=== PATIENT | male | born 1945 | race Caucasian/White ===

== ENCOUNTER 2018-02-10 14:16 | Inpatient (IN) | payer MEDICARE ==
[~2018-02-10] VITALS: Ht 172.7 cm; Wt 95.5 kg
[2018-02-10 14:24] VITALS: BP 149/78; PULSE 79; RESP 20; TEMP 97.5; O2SAT 96
[2018-02-10 14:35] VITALS: BP 170/79; PULSE 71; RESP 18; O2SAT 97
[2018-02-10 14:46] VITALS: BP 146/69; PULSE 67
--- NOTE | 2018-02-10 15:02 | RADRPT ---
EXAM DATE/TIME: 02/10/2018 14:55 [facility] COMPARISON: No previous studies available for comparison. INDICATIONS : Syncope. MEDICAL HISTORY : Hypertension. Diabetes mellitus type II. SURGICAL HISTORY : None. ENCOUNTER: Initial ACUITY: 1 day PAIN SCORE: 0/10 LOCATION: Bilateral chest FINDINGS: Underinflated AP view of the chest demonstrates a normal-sized cardiac silhouette with calcification of the aorta. Lungs are underinflated with atelectasis at the bases. No effusion, consolidation, or p neumothorax is visualized. The bones and soft tissues demonstrate no acute finding. CONCLUSION: Underinflation with atelectasis at the lung bases. Otherwise, no acute cardiopulmonary abnormality is identified. Chris Harris MD on February 10, 2018 at 14:58 Board Certified Radiologist. This report was verified electronically.
[2018-02-10 15:15] LABS: AUTOMATED NEUTROPHIL # 7.6 TH/MM3 (1.8-7.7); BASOPHIL # 0.1 TH/MM3 (0-0.2); BASOPHIL % 0.8 % (0.0-2.0); EOSINOPHIL # 0.7 TH/MM3 (0-0.4); EOSINOPHIL % 6.5 % (0.0-4.0); HEMATOCRIT 38.2 % (39.0-51.0); HEMOGLOBIN 13.1 GM/DL (13.0-17.0); LYMPH % 14.8 % (9.0-44.0); LYMPHOCYTE # 1.6 TH/MM3 (1.0-4.8); MEAN CELL VOLUME 87.5 FL (80.0-100.0); MEAN CORPUSCULAR HEMOGLOBIN 30.1 PG (27.0-34.0); MEAN CORPUSCULAR HGB CONC 34.3 % (32.0-36.0); MEAN PLATELET VOLUME 10.9 FL (7.0-11.0); MONO % 7.5 % (0.0-8.0); MONOCYTE # 0.8 TH/MM3 (0-0.9); NEUT % 70.4 % (16.0-70.0); PLATELET COUNT 212 TH/MM3 (150-450); RED BLOOD COUNT 4.36 MIL/MM3 (4.50-5.90); RED CELL DISTRIBUTION WIDTH 14.9 % (11.6-17.2); WHITE BLOOD COUNT 10.9 TH/MM3 (4.0-11.0)
--- NOTE | 2018-02-10 15:28 | PD ---
HPI Chief Complaint: Neuro Symptoms/ Deficits Time Seen by Provider: 14:31 Travel History International Travel<30 days: Yes Contact w/Intl Traveler<30days: Yes Name of Country Traveled to: [place] Traveled to known affect area: No History of Present Illness HPI 72-year-old male the presents to the ED for evaluation of possible stroke. Per patient the symptoms started on 06 February. Per patient he was increased with family visiting in [place] when he noticed that his right side started to become weak and she started having trouble with speech as well as with confusion. Per patient he did not get seen by anybody during that time. Continue his drip. Mainly because he was seen in an area where there was not a lot of healthcare she did not want to stop his strip. He just came back the past couple of days and the symptoms continued so he was concerned so he came here to get evaluated. He does have a history of high blood pressure, cholesterol, diabetes and takes Plavix. He has a significant history of heart disease. He has never had a CVA himself. No history of this in the past. Per patient he did fall 2 days after the symptoms started but did not hit his head. Has a bruise to his left elbow. Patient currently has no pain. No blurred vision double vision. No headache. Per patient his main symptoms are the weakness on his arms to have no change since symptoms started on the . PFSH Past Medical History Hx Anticoagulant Therapy: Yes (Plavix) High Cholesterol: Yes Coronary Artery Disease: Yes Diabetes: Yes Patient Takes Glucophage: Yes Hypertension: Yes Past Surgical History Cardiac Surgery: Yes (CARDIAC STENT) Social History Alcohol Use: No Tobacco Use: No Substance Use: No Allergies-Medications (Allergen,Severity, Reaction): Coded Allergies: No Known Allergies (Unverified , 02/10/18) Review of Systems Except as stated in HPI: all other systems reviewed are Neg Physical Exam Narrative GENERAL: SKIN: Warm and dry. Patient has a bruise to the left elbow. HEAD: Atraumatic. Normocephalic. EYES: Pupils equal and round 4 mm reactive to light and accommodation.. No scleral icterus. No injection or drainage. ENT: No nasal bleeding or discharge. Mucous membranes pink and moist. Tongue is midline. No obvious uvula deviation. Patient does appear to have some facial droop on the right side. NECK: Trachea midline. No JVD. CARDIOVASCULAR: Regular rate and rhythm. No murmurs, S3, S4. RESPIRATORY: No accessory muscle use. Clear to auscultation. Breath sounds equal bilaterally. GASTROINTESTINAL: Abdomen soft, non-tender, nondistended. Hepatic and splenic margins not palpable. MUSCULOSKELETAL: Extremities without clubbing, cyanosis, or edema. No obvious deformities. Full range of motion of the upper and lower extremities bilaterally. 4 out of 5 strength in the right upper extremity as well as the left lower extremity compared to the left. More noticeable on the left lower extremity than the upper extremity. 2+ pulses bilaterally. Sensation intact bilaterally. NEUROLOGICAL: Awake and alert. No obvious cranial nerve deficits. Motor grossly within normal limits. Five out of 5 muscle strength in the arms and legs. Normal speech. PSYCHIATRIC: Appropriate mood and affect; insight and judgment normal. Data Data Last Documented VS Vital Signs Date Time Temp Pulse Resp B/P (MAP) Pulse Ox O2 Delivery O2 Flow Rate FiO2 02/10/18 16:22 97 21 02/10/18 14:46 67 146/69 (94) 02/10/18 14:35 18 Room Air 02/10/18 14:24 97.5 Orders Orders Electrocardiogram (02/10/18 14:39) Complete Blood Count With Diff (02/10/18 14:39) Comprehensive Metabolic Panel (02/10/18 14:39) Ckmb (Isoenzyme) Profile (02/10/18 14:39) Troponin I (02/10/18 14:39) Prothrombin Time / Inr (Pt) (02/10/18 14:39) Act Partial Throm Time (Ptt) (02/10/18 14:39) Magnesium (Mg) (02/10/18 14:39) Chest, Single Ap (02/10/18 14:39) Ct Brain W/O Iv Contrast(Rout) (02/10/18 14:39) CKMB (02/10/18 14:50) CKMB% (02/10/18 14:50) Aspirin (Aspirin) (02/10/18 16:15) Admit Order (Ed Use Only) (02/10/18 16:12) Vital Signs (Adult) Q4H (02/10/18 16:09) Nih Stroke Scale - Nihss .On admission and discharge (02/10/18 16:09) Neuro Checks Q4H (02/10/18 16:09) Ot Request For Service (02/10/18 16:09) Consult Pt Eval & Treat (02/10/18 16:09) Speech Therapy Consult-Eval/Tx (02/10/18 16:09) Case Management Consult (02/10/18 ) Nursing Bedside Swallow Assess .ONCE (02/10/18 16:09) Scd Bilateral/Knee High RITA.QSHIFT (02/10/18 16:09) Hemoglobin (Hgb) A1c (02/10/18 16:09) Lipid Profile (02/11/18 06:00) Us Carotid Arteries Comp Bilat (02/10/18 ) Mra Brain W/O Contrast (Cow) (02/10/18 ) Mri Brain W/O Contrast (02/10/18 ) Echo 2d Comp With Doppler (02/10/18 ) Resp Oxygen Nc Stroke (02/10/18 ) ^ Hold Medication (02/10/18 16:09) Consult Neurology (02/10/18 ) Sodium Chloride 0.9% Flush (Ns Flush) (02/10/18 21:00) Sodium Chloride 0.9% Flush (Ns Flush) (02/10/18 16:15) Sodium Chlor 0.9% 1000 Ml Inj (Ns 1000 M (02/10/18 17:00) Enalaprilat Inj (Vasotec Inj) (02/10/18 16:15) Aspirin (Aspirin) (02/11/18 09:00) Bedside Glucose RITA.CSUGAR (02/10/18 16:09) ^ Discontinue Insulin Orders (02/10/18 16:09) Insulin Aspart Supplemtl Scale (Novolog (02/10/18 17:00) Dextrose 50% In Daniella (Vial) Inj (D50w (Vi (02/10/18 16:15) Glucagon Inj (Glucagon Inj) (02/10/18 16:15) Consult Rehab Medicine (02/10/18 16:09) Student Support Counselor / Telemetry RITA.Q8H (02/10/18 16:09) Consult Stroke Navigator (02/10/18 ) Scd Bilateral/Knee High RITA.BID (02/10/18 16:09) Place In Observation (02/10/18 ) Activity Bed Rest (02/10/18 16:14) Nursing Bedside Swallow Assess .ONCE (02/10/18 16:14) ^ Other Nursing Orders (02/10/18 16:14) Magnesium Sulfate 1 Gm Premix (Magnesium (02/10/18 17:00) Magnesium Oxide (Mag-Ox) (02/10/18 21:00) Acetaminophen (Tylenol) (02/10/18 16:15) Ondansetron Inj (Zofran Inj) (02/10/18 16:15) Acetaminophen (Tylenol) (02/10/18 16:15) Naloxone Inj (Narcan Inj) (02/10/18 16:15) Docusate Sodium-Senna (Janie-Colace) (02/10/18 21:00) Magnesium Hydroxide Liq (Milk Of Magnesi (02/10/18 16:15) Sennosides (Senokot) (02/10/18 16:15) Bisacodyl Supp (Dulcolax Supp) (02/10/18 16:15) Lactulose Liq (Lactulose Liq) (02/10/18 16:15) Basic Metabolic Panel (Bmp) (02/11/18 06:00) Magnesium (Mg) (02/11/18 06:00) ^ Other Nursing Orders (02/10/18 16:15) Labs Laboratory Tests Test 02/10/18 14:50 White Blood Count 10.9 TH/MM3 Red Blood Count 4.36 MIL/MM3 Hemoglobin 13.1 GM/DL Hematocrit 38.2 % Mean Corpuscular Volume 87.5 FL Mean Corpuscular Hemoglobin 30.1 PG Mean Corpuscular Hemoglobin Concent 34.3 % Red Cell Distribution Width 14.9 % Platelet Count 212 TH/MM3 Mean Platelet Volume 10.9 FL Neutrophils (%) (Auto) 70.4 % Lymphocytes (%) (Auto) 14.8 % Monocytes (%) (Auto) 7.5 % Eosinophils (%) (Auto) 6.5 % Basophils (%) (Auto) 0.8 % Neutrophils # (Auto) 7.6 TH/MM3 Lymphocytes # (Auto) 1.6 TH/MM3 Monocytes # (Auto) 0.8 TH/MM3 Eosinophils # (Auto) 0.7 TH/MM3 Basophils # (Auto) 0.1 TH/MM3 CBC Comment DIFF FINAL Differential Comment Prothrombin Time 10.7 SEC Prothromb Time International Ratio 1.1 RATIO Activated Partial Thromboplast Time 25.9 SEC Blood Urea Nitrogen 26 MG/DL Creatinine 1.63 MG/DL Random Glucose 80 MG/DL Total Protein 7.4 GM/DL Albumin 3.6 GM/DL Calcium Level 8.9 MG/DL Magnesium Level 1.2 MG/DL Alkaline Phosphatase 46 U/L Aspartate Amino Transf (AST/SGOT) 23 U/L Alanine Aminotransferase (ALT/SGPT) 29 U/L Total Bilirubin 0.8 MG/DL Sodium Level 143 MEQ/L Potassium Level 4.3 MEQ/L Chloride Level 106 MEQ/L Carbon Dioxide Level 28.6 MEQ/L Anion Gap 8 MEQ/L Estimat Glomerular Filtration Rate 42 ML/MIN Total Creatine Kinase 196 U/L Creatine Kinase MB 2.6 NG/ML Troponin I LESS THAN 0.02 NG/ML MDM Medical Decision Making Medical Screen Exam Complete: Yes Emergency Medical Condition: Yes Medical Record Reviewed: Yes Interpretation(s) CBC & BMP Diagram 02/10/18 14:50 Total Protein 7.4, Albumin 3.6, Calcium Level 8.9, Magnesium Level 1.2 L, Alkaline Phosphatase 46, Aspartate Amino Transf (AST/SGOT) 23, Alanine Aminotransferase (ALT/SGPT) 29, Total Bilirubin 0.[address] 02/10/18 1439 Signed Impressions: Service Date/Time: Saturday, February 10, 2018 14:56 - CONCLUSION: 1. No acute findings in the brain. 2. No diffuse ischemic change. Ean Mauricio MD Chest X-Ray 02/10/18 1439 Signed Impressions: Service Date/Time: Saturday, February 10, 2018 14:55 - CONCLUSION: Underinflation with atelectasis at the lung bases. Otherwise, no acute cardiopulmonary abnormality is identified. Chris Harris MD EKG shows sinus rhythm with no sign of acute ischemia or arrhythmia read by me and attending. Troponin and CK-MB negative. coags WNL Differential Diagnosis CVA versus ACS versus TIA versus neuropathy versus head injury versus head bleed Narrative Course 72-year-old male that presents to the ED for evaluation of likely CVA. Patient was properly examined and was found to have signs and symptoms very consistent with appears to be CVA. Symptoms started 4 days ago. Patient's symptoms continue. Patient was out of town when this happened. Has not seek medical help since. No history of CVA in the past. No workup for that in the past. At this time I do recommend labs and imaging and likely admission for further eval as well as risk stratification to prevent a new one. Patient agrees with this. Labs and imaging ordered and show no sign of acute disease alert and what appears to be cerebellar infarct. This is the only finding on the CT report but likely this is new. This time I recommend admission for further evaluation as well as risk stratification. Patient agrees with this. Case discussed with Dr. Davison who agrees to admission. My attending Dr. Reid evaluate the patient and agrees with plan. Diagnosis Primary Impression: CVA (cerebral vascular accident) Qualified Codes: I63.9 - Cerebral infarction, unspecified Admitting Information Admitting Physician Requests: Stoney Min Feb 10, 2018 15:28
[2018-02-10 15:31] LABS: INTERNATIONAL NORMALIZED RATIO 1.1 RATIO; PROTHROMBIN TIME - PATIENT 10.7 SEC (9.8-11.6)
[2018-02-10 15:46] LABS: ALKALINE PHOSPHATASE 46 U/L (45-117); TOTAL BILIRUBIN ADULT 0.8 MG/DL (0.2-1.0); TOTAL PROTEIN 7.4 GM/DL (6.4-8.2); TROPONIN I LESS THAN 0.02 NG/ML (0.02-0.05)
[2018-02-10 15:52] LABS: ALBUMIN 3.6 GM/DL (3.4-5.0); ALT (GPT) 29 U/L (12-78); AST (GOT) 23 U/L (15-37); BICARBONATE 28.6 MEQ/L (21.0-32.0); BLOOD UREA NITROGEN 26 MG/DL (7-18); CALCIUM 8.9 MG/DL (8.5-10.1); CHLORIDE 106 MEQ/L (98-107); CREATININE 1.63 MG/DL (0.60-1.30); GLOMERULAR FILTRATION RATE 42 ML/MIN (>89); GLUCOSE,RANDOM 80 MG/DL (74-106); MAGNESIUM 1.2 MG/DL (1.5-2.5); SODIUM (NA) 143 MEQ/L (136-145)
--- NOTE | 2018-02-10 15:57 | RADRPT ---
EXAM DATE/TIME: 02/10/2018 14:56 [facility] COMPARISON: No previous studies available for comparison. INDICATIONS : Right side weakness,touble walking and talking RADIATION DOSE: 56.35 CTDIvol (mGy) MEDICAL HISTORY : Cardiovascular disease. SURGICAL HISTORY : None. ENCOUNTER: Initial ACUITY: 1 day PAIN SCALE: 0/10 LOCATION: cranial TECHNIQUE: Multiple contiguous axial images were obtained of the head. Using automated exposure control and adj ustment of the mA and/or kV according to patient size, radiation dose was kept as low as reasonably a chievable to obtain optimal diagnostic quality images. DICOM format image data is available electro nically for review and comparison. FINDINGS: CEREBRUM: The ventricles are normal for age. Mild decreased attenuation in the supratentorial white matter mayra racteristic of ischemic change. Tiny lacunar infarct in the left posterior cerebral. No evidence of midline shift, mass lesion, hemorrhage or acute infarction. No extra-axial fluid collections are se en. POSTERIOR FOSSA: The cerebellum and brainstem are intact. The 4th ventricle is midline. The cerebellopontine angle i s unremarkable. EXTRACRANIAL: The visualized portion of the orbits is intact. SKULL: The calvaria is intact. No evidence of skull fracture. CONCLUSION: 1. No acute findings in the brain. 2. No diffuse ischemic change. Ean Mauricio MD on February 10, 2018 at 15:54 Board Certified Radiologist. This report was verified electronically.
--- NOTE | 2018-02-10 16:14 | PD ---
Data Data Last Documented VS Vital Signs Date Time Temp Pulse Resp B/P (MAP) Pulse Ox O2 Delivery O2 Flow Rate FiO2 02/10/18 14:46 67 146/69 (94) 02/10/18 14:35 18 97 Room Air 02/10/18 14:24 97.5 Orders Orders Electrocardiogram (02/10/18 14:39) Complete Blood Count With Diff (02/10/18 14:39) Comprehensive Metabolic Panel (02/10/18 14:39) Ckmb (Isoenzyme) Profile (02/10/18 14:39) Troponin I (02/10/18 14:39) Prothrombin Time / Inr (Pt) (02/10/18 14:39) Act Partial Throm Time (Ptt) (02/10/18 14:39) Magnesium (Mg) (02/10/18 14:39) Chest, Single Ap (02/10/18 14:39) Ct Brain W/O Iv Contrast(Rout) (02/10/18 14:39) CKMB (02/10/18 14:50) CKMB% (02/10/18 14:50) Aspirin (Aspirin) (02/10/18 16:15) Admit Order (Ed Use Only) (02/10/18 16:12) Vital Signs (Adult) Q4H (02/10/18 16:09) Nih Stroke Scale - Nihss .On admission and discharge (02/10/18 16:09) Neuro Checks Q4H (02/10/18 16:09) Ot Request For Service (02/10/18 16:09) Consult Pt Eval & Treat (02/10/18 16:09) Speech Therapy Consult-Eval/Tx (02/10/18 16:09) Case Management Consult (02/10/18 ) Nursing Bedside Swallow Assess .ONCE (02/10/18 16:09) Hemoglobin (Hgb) A1c (02/10/18 16:09) Lipid Profile (02/11/18 06:00) Us Carotid Arteries Comp Bilat (02/10/18 ) Mra Brain W/O Contrast (Cow) (02/10/18 ) Mri Brain W/O Contrast (02/10/18 ) Resp Oxygen Nc Stroke (02/10/18 ) ^ Hold Medication (02/10/18 16:09) Consult Neurology (02/10/18 ) Sodium Chloride 0.9% Flush (Ns Flush) (02/10/18 21:00) Sodium Chloride 0.9% Flush (Ns Flush) (02/10/18 16:15) Sodium Chlor 0.9% 1000 Ml Inj (Ns 1000 M (02/10/18 17:00) Enalaprilat Inj (Vasotec Inj) (02/10/18 16:15) Aspirin (Aspirin) (02/11/18 09:00) Bedside Glucose RITA.CSUGAR (02/10/18 16:09) ^ Discontinue Insulin Orders (02/10/18 16:09) Insulin Aspart Supplemtl Scale (Novolog (02/10/18 17:00) Dextrose 50% In Daniella (Vial) Inj (D50w (Vi (02/10/18 16:15) Glucagon Inj (Glucagon Inj) (02/10/18 16:15) Consult Rehab Medicine (02/10/18 16:09) Reliability Technician / Telemetry RITA.Q8H (02/10/18 16:09) Consult Stroke Navigator (02/10/18 ) Echo 2d Comp With Doppler (02/11/18 ) Labs Laboratory Tests Test 02/10/18 14:50 White Blood Count 10.9 TH/MM3 Red Blood Count 4.36 MIL/MM3 Hemoglobin 13.1 GM/DL Hematocrit 38.2 % Mean Corpuscular Volume 87.5 FL Mean Corpuscular Hemoglobin 30.1 PG Mean Corpuscular Hemoglobin Concent 34.3 % Red Cell Distribution Width 14.9 % Platelet Count 212 TH/MM3 Mean Platelet Volume 10.9 FL Neutrophils (%) (Auto) 70.4 % Lymphocytes (%) (Auto) 14.8 % Monocytes (%) (Auto) 7.5 % Eosinophils (%) (Auto) 6.5 % Basophils (%) (Auto) 0.8 % Neutrophils # (Auto) 7.6 TH/MM3 Lymphocytes # (Auto) 1.6 TH/MM3 Monocytes # (Auto) 0.8 TH/MM3 Eosinophils # (Auto) 0.7 TH/MM3 Basophils # (Auto) 0.1 TH/MM3 CBC Comment DIFF FINAL Differential Comment Prothrombin Time 10.7 SEC Prothromb Time International Ratio 1.1 RATIO Activated Partial Thromboplast Time 25.9 SEC Blood Urea Nitrogen 26 MG/DL Creatinine 1.63 MG/DL Random Glucose 80 MG/DL Total Protein 7.4 GM/DL Albumin 3.6 GM/DL Calcium Level 8.9 MG/DL Magnesium Level 1.2 MG/DL Alkaline Phosphatase 46 U/L Aspartate Amino Transf (AST/SGOT) 23 U/L Alanine Aminotransferase (ALT/SGPT) 29 U/L Total Bilirubin 0.8 MG/DL Sodium Level 143 MEQ/L Potassium Level 4.3 MEQ/L Chloride Level 106 MEQ/L Carbon Dioxide Level 28.6 MEQ/L Anion Gap 8 MEQ/L Estimat Glomerular Filtration Rate 42 ML/MIN Hemoglobin A1c 7.3 % Total Creatine Kinase 196 U/L Creatine Kinase MB 2.6 NG/ML Troponin I LESS THAN 0.02 NG/ML MDM Medical Record Reviewed: Yes Supervised Visit with DEVIN: Yes Narrative Course I, Dr. Reid, have reviewed the advance practice practitioner's documentation and am in agreement, met with the patient face to face, made the diagnosis, and the medical decision making was done by me. *My assessment and Findings: Presentation consistent with ischemic stroke. The patient will be admitted for further evaluation and treatment. Jacob Reid MD Feb 10, 2018 16:14
[2018-02-10] MEDS ORDERED: ENALAPRILAT 1.25 MG/ML VIAL IV PUSH PRN (16:15)
[2018-02-10] MEDS ORDERED: MAGNESIUM HYDROXIDE SUSP 30 ML CUP PO PRN (16:15)
[2018-02-10] MEDS ORDERED: LACTULOSE SYRUP 20 GM/30 ML CUP PO PRN (16:15)
[2018-02-10] MEDS ORDERED: DEXTROSE 50% IN WATER 50 ML VIAL(D50) IV PUSH PRN (16:15)
[2018-02-10] MEDS ORDERED: SENNOSIDES 8.6 MG TAB PO PRN (16:15)
[2018-02-10] MEDS ORDERED: NALOXONE HCL 0.4 MG/ML AMP IV PUSH PRN (16:15)
[2018-02-10] MEDS ORDERED: GLUCAGON 1 MG/ML VIAL OTHER PRN (16:15)
[2018-02-10] MEDS ORDERED: ONDANSETRON HCL 4 MG/2 ML VIAL IVP PRN (16:15)
[2018-02-10] MEDS ORDERED: BISACODYL 10 MG SUPP RECTAL PRN (16:15)
[2018-02-10] MEDS ORDERED: ASPIRIN 325 MG TAB PO ONE (16:15)
[2018-02-10] MEDS ORDERED: SODIUM CHLORIDE 0.9% FLUSH 10 ML FLUSH IV FLUSH PRN (16:15)
[2018-02-10] MEDS ORDERED: ACETAMINOPHEN 325 MG TAB PO PRN ×2 (16:15)
[2018-02-10 16:22] VITALS: O2SAT 97
[2018-02-10] MEDS: SODIUM CHLOR 0.9% 1000 ML INJ 1,000 ML IV SCH ×2 (17:00→22:35)
[2018-02-10] MEDS: INSULIN ASPART SUPPLEMENTAL SCALE SQ SCH ×2 (17:00→20:57)
[2018-02-10] MEDS ORDERED: GLYB2.5T3 PO (17:11)
[2018-02-10] MEDS ORDERED: GLYB5TAB3 PO (17:11)
[2018-02-10] MEDS ORDERED: FENO2.5C PO (17:11)
[2018-02-10] MEDS ORDERED: METF500T PO ×2 (17:14)
[2018-02-10] MEDS ORDERED: METO25TA3 PO (17:14)
[2018-02-10] MEDS ORDERED: METF1000 PO (17:14)
[2018-02-10] MEDS ORDERED: CLOP75TA PO (17:14)
[2018-02-10] MEDS ORDERED: AMLO5TAB2 PO (17:14)
[2018-02-10] MEDS ORDERED: SITA1TAB2 PO (17:14)
[2018-02-10] MEDS ORDERED: ATOR80TA45 PO (17:14)
[2018-02-10] MEDS ORDERED: LISI10TA3 PO (17:14)
[2018-02-10] MEDS: MAGNESIUM SULFATE 1 GM PREMIX 100 ML IV SCH ×2 (17:18→22:35)
--- NOTE | 2018-02-10 17:22 | HHI.HP ---
[facility] Service [facility] Primary Care Physician Mirian Velásquez MD Admission Diagnosis CVA on 02/06, right sided weakness and aphasia Diagnoses: Chief Complaint: Right-sided weakness Travel History International Travel<30 Days: Yes Contact w/Intl Traveler <30 Da: Yes Name of Country Traveled to: [place] Traveled to Known Affected Are: No History of Present Illness This is a 72-year-old male who presented to the emergency room complaining of 4 day history of right-sided weakness. States he woke up with slurred speech having difficulty ambulating and writing with his right hand. He did not seek medical attention because he was on a cruise. Denies fever, chills, headache, dizziness, chest pain and shortness of breath. Reports of choking with liquids. He also fell twice and hurt his left elbow. Persistence of symptoms prompted ER visit. All other systems reviewed negative Review of Systems Except as stated in HPI: all other systems reviewed are Neg Past Family Social History Past Medical History Hypertension, diabetes mellitus, hyperlipidemia, coronary artery disease status post stent and chronic kidney disease stage III Past Surgical History As previously mentioned Reported Medications Nursing to verify he is on multiple medications Allergies: Coded Allergies: No Known Allergies (Unverified , 02/10/18) Family History No CVA or heart disease Social History Does not smoke or drink Physical Exam Vital Signs Vital Signs Date Time Temp Pulse Resp B/P (MAP) Pulse Ox O2 Delivery O2 Flow Rate FiO2 02/10/18 16:22 97 21 02/10/18 14:46 67 146/69 (94) 02/10/18 14:35 71 18 170/79 (109) 97 Room Air 02/10/18 14:24 97.5 79 20 149/78 (101) 96 Physical Exam GENERAL: This is a well-nourished, well-developed patient, in no apparent distress. SKIN: No rashes, ecchymoses or lesions. Cool and dry. HEAD: Atraumatic. Normocephalic. No temporal or scalp tenderness. EYES: Pupils equal round and reactive. Extraocular motions intact. No scleral icterus. No injection or drainage. ENT: Nose without bleeding, purulent drainage or septal hematoma. Throat without erythema, tonsillar hypertrophy or exudate. Uvula midline. Airway patent. NECK: Trachea midline. No JVD or lymphadenopathy. Supple, nontender, no meningeal signs. CARDIOVASCULAR: Regular rate and rhythm without murmurs, gallops, or rubs. RESPIRATORY: Clear to auscultation. Breath sounds equal bilaterally. No wheezes , rales, or rhonchi. GASTROINTESTINAL: Abdomen soft, non-tender, nondistended. No guarding. MUSCULOSKELETAL: Extremities without clubbing, cyanosis but with right lower extremity pitting edema. No joint tenderness, effusion, or edema noted. No calf tenderness. Negative Homans sign bilaterally. NEUROLOGICAL: Awake and alert. Slight right facial droop. Sensory grossly within normal limits. Right pronator drip able to raise out right upper extremity against resistance but weaker than the left seen with the right lower extremity. Normal speech. Laboratory Laboratory Tests Test 02/10/18 14:50 White Blood Count 10.9 Red Blood Count 4.36 Hemoglobin 13.1 Hematocrit 38.2 Mean Corpuscular Volume 87.5 Mean Corpuscular Hemoglobin 30.1 Mean Corpuscular Hemoglobin Concent 34.3 Red Cell Distribution Width 14.9 Platelet Count 212 Mean Platelet Volume 10.9 Neutrophils (%) (Auto) 70.4 Lymphocytes (%) (Auto) 14.8 Monocytes (%) (Auto) 7.5 Eosinophils (%) (Auto) 6.5 Basophils (%) (Auto) 0.8 Neutrophils # (Auto) 7.6 Lymphocytes # (Auto) 1.6 Monocytes # (Auto) 0.8 Eosinophils # (Auto) 0.7 Basophils # (Auto) 0.1 CBC Comment DIFF FINAL Differential Comment Prothrombin Time 10.7 Prothromb Time International Ratio 1.1 Activated Partial Thromboplast Time 25.9 Blood Urea Nitrogen 26 Creatinine 1.63 Random Glucose 80 Total Protein 7.4 Albumin 3.6 Calcium Level 8.9 Magnesium Level 1.2 Alkaline Phosphatase 46 Aspartate Amino Transf (AST/SGOT) 23 Alanine Aminotransferase (ALT/SGPT) 29 Total Bilirubin 0.8 Sodium Level 143 Potassium Level 4.3 Chloride Level 106 Carbon Dioxide Level 28.6 Anion Gap 8 Estimat Glomerular Filtration Rate 42 Total Creatine Kinase 196 Creatine Kinase MB 2.6 Troponin I LESS THAN 0.02 Result Diagram: 02/10/18 1450 02/10/18 1450 Imaging Last Impressions Head CT 02/10/18 1439 Signed Impressions: Service Date/Time: Saturday, February 10, 2018 14:56 - CONCLUSION: 1. No acute findings in the brain. 2. No diffuse ischemic change. Ean Mauricio MD Chest X-Ray 02/10/18 1439 Signed Impressions: Service Date/Time: Saturday, February 10, 2018 14:55 - CONCLUSION: Underinflation with atelectasis at the lung bases. Otherwise, no acute cardiopulmonary abnormality is identified. MD Elana Escalera VTE Risk Assessment Caprini VTE Risk Assessment: Mod/High Risk (score >= 2) Caprini Risk Assessment Model Point Value = 1 Point Value = 2 Point Value = 3 Point Value = 5 Age 41-60 Minor surgery BMI > 25 kg/m2 Swollen legs Varicose veins or History of unexplained or recurrent spontaneous Oral contraceptives or hormone replacement Sepsis (< 1 month) Serious lung disease, including pneumonia (< 1 month) Abnormal pulmonary function Acute myocardial infarction Congestive heart failure (< 1 month) History of inflammatory bowel disease Medical patient at bed rest Age 61-74 Arthroscopic surgery Major open surgery (> 45 min) Laparoscopic surgery (> 45 min) Malignancy Confined to bed (> 72 hours) Immobilizing plaster cast Central venous access Age >= 75 History of VTE Family history of VTE Factor V Leiden Prothrombin [id number] Lupus anticoagulant Anticardiolipin antibodies Elevated serum homocysteine Heparin-induced thrombocytopenia Other congenital or acquired thrombophilia Stroke (< 1 month) Elective arthroplasty Hip, pelvis, or leg fracture Acute spinal cord injury (< 1 month) Prophylaxis Regimen Total Risk Factor Score Risk Level Prophylaxis Regimen 0-1 Low Early ambulation 2 Moderate Order ONE of the following: *Sequential Compression Device (SCD) *Heparin 5000 units SQ BID 3-4 Higher Order ONE of the following medications: *Heparin 5000 units SQ TID *Enoxaparin/Lovenox 40 mg SQ daily (WT < 150 kg, CrCl > 30 mL/min) *Enoxaparin/Lovenox 30 mg SQ daily (WT < 150 kg, CrCl > 10-29 mL/min) *Enoxaparin/Lovenox 30 mg SQ BID (WT < 150 kg, CrCl > 30 mL/min) AND/OR *Sequential Compression Device (SCD) 5 or more Highest Order ONE of the following medications: *Heparin 5000 units SQ TID (Preferred with Epidurals) *Enoxaparin/Lovenox 40 mg SQ daily (WT < 150 kg, CrCl > 30 mL/min) *Enoxaparin/Lovenox 30 mg SQ daily (WT < 150 kg, CrCl > 10-29 mL/min) *Enoxaparin/Lovenox 30 mg SQ BID (WT < 150 kg, CrCl > 30 mL/min) AND *Sequential Compression Device (SCD) Assessment and Plan Problem List: (1) CVA (cerebral vascular accident) ICD Code: I63.9 - Cerebral infarction, unspecified Status: Acute Assessment and Plan This is a 72-year-old male who presented to the emergency room complaining of 4 day history of right-sided weakness, slurred speech and difficulty swallowing. On exam he has right-sided weakness. CVA, subacute. Head CT without acute findings images reviewed EKG with sinus rhythm tracing reviewed. Patient will be hospitalized for further evaluation and treatment. Will increase aspirin to full dose and continue Plavix, permissive hypertension with IV hydration and stroke workup which will include MRI of the brain, carotid ultrasound and echocardiogram. Monitor telemetry. Risk factor modifications obtain A1c and lipid profile. Consult neurology, PT, OT and speech therapy. Aspiration precautions Fall. Fall precautions Right lower extremity pitting edema with recent travel. Obtain Doppler to evaluate for DVT. Discontinue SCD for now Multiple medical conditions are hypertension, diabetes mellitus, hyperlipidemia , coronary artery disease status post stent and chronic kidney disease stage III. Continue outpatient medications as appropriate. Monitor fingersticks with sliding scale coverage Hypomagnesemia. Replace with 2 g of IV magnesium and magnesium oxide twice a day for 1 day and repeat level in the morning DVT prophylaxis with SCD only in the left lower extremity. Consider pharmacological prophylaxis pending MRI and neurology evaluation Discussed Condition With Patient and significant other Problem Qualifiers (1) CVA (cerebral vascular accident): Qualified Codes: I63.9 - Cerebral infarction, unspecified Miguel Davison MD Feb 10, 2018 17:22
--- NOTE | 2018-02-10 17:37 | EKG ---
Date Performed: 02/10/2018 Time Performed: 14:49:38 PTAGE: 72 years EKG: Sinus rhythm NORMAL ECG NO PREVIOUS TRACING DOCTOR: Joao Purcell Interpretating Date/Time 02/10/2018 17:35:22
--- NOTE | 2018-02-10 19:33 | RADRPT ---
EXAM DATE/TIME: 02/10/2018 18:35 [facility] COMPARISON: No previous studies available for comparison. INDICATIONS : CVA. Right sided weakness. MEDICAL HISTORY : Carcinoma, prostate. Hypertension. Diabetes mellitus type 2. SURGICAL HISTORY : Knee sx, Prostate sx. ENCOUNTER: Initial ACUITY: 4-6 days PAIN SCORE: 2/10 LOCATION: Right cranial TECHNIQUE: Multiplanar, multisequence MRI of the brain was performed without contrast. FINDINGS: There is an approximately 1.3 x 0.8 cm acute or subacute infarct in the left anabell without evidence fo r associated hemorrhage. There is a remote lacunar infarct in the right basal ganglia with some surro unding hemosiderin deposition. Mild to moderate white matter ischemic change is present. No mass effe ct or shift. No hydrocephalus. CONCLUSION: 1. Acute 1.3 x 0.8 cm infarct in the left anabell. 2. Remote lacunar infarct right basal ganglia with some hemosiderin deposition. Layton Stokes MD on February 10, 2018 at 19:26 Board Certified Radiologist. This report was verified electronically.
--- NOTE | 2018-02-10 19:36 | RADRPT ---
EXAM DATE/TIME: 02/10/2018 18:35 [facility] COMPARISON: No previous studies available for comparison. INDICATIONS : CVA. Right sided weakness. MEDICAL HISTORY : Carcinoma, prostate. Hypertension. Diabetes mellitus type 2. SURGICAL HISTORY : Knee sx, Prostate sx. ENCOUNTER: Initial ACUITY: 4-6 days PAIN SCORE: 2/10 LOCATION: Right cranial Please note a normal MRA of the brain does not entirely exclude the possibility of a small aneurysm, nor the possibility of distal intracranial vessel disease. TECHNIQUE: 3D time of flight MRA was performed. Source images, multiplanar STS MIP, and 3D volume MIP reconstru ctions were reviewed. FINDINGS: There is excellent visualization of the major intracranial arteries out to the second-order branch ve ssels. There is no evidence for aneurysm, vessel truncation or stenosis, and no evidence for vascula r malformation. CONCLUSION: Normal examination for a patient of this age. Layton Stokes MD on February 10, 2018 at 19:31 Board Certified Radiologist. This report was verified electronically.
--- NOTE | 2018-02-10 20:08 | MB ---
cc: Beny Lujan MD DATE: 02/10/2018 HISTORY OF PRESENT ILLNESS: This is a 72-year-old right-handed man with a history of hypertension, non-insulin dependent diabetes, hypercholesterolemia, cardiac stent from [place]. He takes a baby aspirin and Plavix a day. Some mild renal insufficiency, prostate cancer not currently active, status post seeds. He was [place] ferry. When he woke up his speech was slurred. He had trouble signing his name, fell several times, felt weak in the right leg and flew back here. SOCIAL HISTORY: Not a smoker or drinker, lives with his girlfriend. FAMILY HISTORY: Negative for cancer, seizure or stroke. REVIEW OF SYSTEMS: He denied any history of known atrial fibrillation, Coumadin, hepatic, pulmonary disease, thyroid disease, lupus, ulcer, seizure or stroke. ALLERGIES: : No known drug allergies. MEDICATIONS: He takes: 1. Plavix. 2. Aspirin. 3. He takes Lisinopril. 2. Amlodipine. 3. Metoprolol. 4. Metformin. 5. Glyburide. 6. Atorvastatin. 7. Januvia. PHYSICAL EXAMINATION: VITAL SIGNS: Afebrile, 79, 20 170/79-149/69. He has been in sinus rhythm on EKG. NECK: There were no carotid bruits. HEART: Regular rhythm. I do not detect a murmur. NEUROLOGIC: Pupils are equal. Visual davis are full. Extraocular movements intact without nystagmus. Face has a right facial droop but he moves it symmetrically. Tongue was midline. Face sensation was intact. There is no drift. He had normal strength in upper extremities bilaterally, but he is weak in the right lower extremity, I would put about a 4+/5 on the right iliopsoas, tibialis anterior had normal strength. Left arm and leg were normal. DTRs are trace throughout. Toes were downgoing bilaterally. Pinprick is intact throughout. He is not ataxic on [id number] on the left. He is mildly on the right. Speech is fluent. He is not aphasic. LABORATORY DATA: CBC is normal. Basic metabolic profile: Creatinine is 1.63, otherwise normal. LFTs were normal. CPK, troponin, albumin, coags normal. IMAGING STUDIES: CAT scan of the brain was negative. Chest X-ray: Under inflation of the lung bases, otherwise normal. MRI of the brain has been done, preliminary report. Just by my view, he has got an acute, although not particularly hyperdense left pontine infarct. There is small dillon artifact in the left medial cerebellum. There is an old small lacunar type infarct in the right basal ganglia. MRA of the [place] shows he is left vertebral dominant. The basal artery looks patent. 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 These can get worse, although it has been 4 days now. They can get worse up to 72 hours after the infarct. I think for now we will keep his head of bed flat, IV hydration and check his LDL cholesterol. This is probably more of a nuclear physics professor infarct, although I cannot say for sure it is not an embolic infarct. We will check an echo and Holter. I note, he is already on aspirin and Plavix. We will put him on fish oil. We will also check an MRA of the neck to look for any more proximal vertebrobasilar disease. MD CAROL ANN Tee/LANEY , 07:41 PM , 08:07 PM
[2018-02-10 20:16] VITALS: BP 134/61; PULSE 62; RESP 18; TEMP 98.1; O2SAT 95
--- NOTE | 2018-02-10 20:35 | RADRPT ---
EXAM DATE/TIME: 02/10/2018 19:40 [facility] COMPARISON: No previous studies available for comparison. INDICATIONS : Right leg swelling. MEDICAL HISTORY : Hypercholesterolemia. Hypertension. Coronary artery disease. Anticoagulant therapy, plavix. Diabe modesto. SURGICAL HISTORY : Cardiac stent. ENCOUNTER: Initial ACUITY: 1 day PAIN SCORE: 0/10 LOCATION: Right leg. TECHNIQUE: Venous ultrasound of the leg was performed from the inguinal ligament to the proximal calf. Real-yumiko e, color Doppler and spectral tracing, compression and augmentation techniques were used. FINDINGS: There is normal compressibility of the deep venous system from the inguinal region to the proximal ca lf. No echogenic clot is seen in the lumen of the common femoral, femoral, popliteal, and posterior tibial veins. There is a normal response of the venous system to proximal and distal augmentation an d respiration. CONCLUSION: Normal examination. Layton Stokes MD on February 10, 2018 at 20:33 Board Certified Radiologist. This report was verified electronically.
--- NOTE | 2018-02-10 20:36 | RADRPT ---
EXAM DATE/TIME: 02/10/2018 19:47 [facility] COMPARISON: No previous studies available for comparison. INDICATIONS : Cerebrovascular accident. MEDICAL HISTORY : Hypercholesterolemia. Hypertension. Coronary artery disease. Anticoagulant therapy, plavix. Diabete s. SURGICAL HISTORY : Cardiac stent. ENCOUNTER: Initial ACUITY: 1 day PAIN SCORE: 0/10 LOCATION: Bilateral neck PEAK SYSTOLIC VELOCITIES (cm/sec): ICA/CCA RATIO: Right: 0.72 Left: 1.0 ICA: Right: 78 Left: 85 CCA: Right: 108 Left: 84 ECA: Right: 125 Left: 101 VERTEBRAL: Right: 47 antegrade Left: 78 antegrade Elevated flow velocities and ICA/CCA ratios have been found to correlate with increased degrees of vessel stenosis, calculated as percentage of diameter relative to a normal segment of distal ICA/CCA FINDINGS: RIGHT CAROTID: No significant stenosis is visualized. The waveforms are within normal limits. LEFT CAROTID: No significant stenosis is visualized. The waveforms are within normal limits. VERTEBRAL ARTERIES: Antegrade flow is seen in both vertebral arteries. MISCELLANEOUS: None. CONCLUSION: 1. Mild plaque formation in the carotid bifurcations. No hemodynamically significant stenosis. Layton Stokes MD on February 10, 2018 at 20:33 Board Certified Radiologist. This report was verified electronically.
[2018-02-10] MEDS: DOCUSATE SODIUM 50 MG/SENNA 8.6 MG TAB PO SCH (21:00)
[2018-02-10] MEDS: SODIUM CHLORIDE 0.9% FLUSH 10 ML FLUSH IV FLUSH SCH (21:00)
[2018-02-10] MEDS: CLOPIDOGREL 75 MG TAB PO SCH (22:34)
[2018-02-10 23:20] VITALS: BP 135/63; PULSE 59; RESP 18; TEMP 97.8; O2SAT 94
[2018-02-11] VITALS (9 sets, daily range): BP systolic 133–187; BP diastolic 65–82; PULSE 55–91; RESP 16–18; TEMP 97.6–98.1; O2SAT 93–97
[2018-02-11] MEDS: MAGNESIUM OXIDE 400 MG TAB PO SCH ×2 (00:38→09:49)
--- NOTE | 2018-02-11 07:06 | HHI.PR ---
Subjective Remarks sr Objective Vital Signs Date Time Temp Pulse Resp B/P (MAP) Pulse Ox O2 Delivery O2 Flow Rate FiO2 02/11/18 04:32 97.6 59 16 148/70 (96) 94 02/11/18 03:35 58 02/11/18 00:00 55 02/10/18 23:20 97.8 59 18 135/63 (87) 94 02/10/18 20:16 98.1 62 18 134/61 (85) 95 02/10/18 17:39 02/10/18 17:15 95 Room Air 02/10/18 16:22 97 21 02/10/18 14:46 67 146/69 (94) 02/10/18 14:35 71 18 170/79 (109) 97 Room Air 02/10/18 14:24 97.5 79 20 149/78 (101) 96 I/O 02/10/18 02/10/18 02/10/18 02/11/18 02/11/18 02/11/18 07:00 15:00 23:00 07:00 15:00 23:00 Intake Total 580 ml Balance 580 ml Intake Oral 480 ml IV Total 100 ml Result Diagram: 02/10/18 1450 02/10/18 1450 Objective Remarks face sym now 5/ r side Assessment and Plan Assessment and Plan imp imoproved fu echo holter ldl labs asa plavix already on likely lacunar cva Beny Lujan MD February 11, 2018 07:06
[2018-02-11] MEDS: SODIUM CHLOR 0.9% 1000 ML INJ 1,000 ML IV SCH ×4 (07:18→22:40)
[2018-02-11 07:48] LABS: BICARBONATE 26.9 MEQ/L (21.0-32.0); CALCIUM 8.1 MG/DL (8.5-10.1); CHOLESTEROL/ HDL RATIO 3.98 RATIO; CREATININE 1.36 MG/DL (0.60-1.30); HDL CHOLESTEROL 39.4 MG/DL (40.0-60.0); MAGNESIUM 1.7 MG/DL (1.5-2.5)
[2018-02-11] MEDS: INSULIN ASPART SUPPLEMENTAL SCALE SQ SCH ×4 (08:00→21:55)
[2018-02-11 08:19] LABS: CHOLESTEROL/ HDL RATIO 3.91 RATIO; FOLATE 10.7 NG/ML (3.1-17.5); FREE T4 1.21 NG/DL (0.76-1.46); HDL CHOLESTEROL 39.8 MG/DL (40.0-60.0)
--- NOTE | 2018-02-11 08:36 | HHI.PR ---
Subjective Remarks Follow up for CVA. The patient reports feeling much better again today. He reports normal strength of bilateral upper and lower extremities. He denies any other medical complaints including no headache, lightheadedness, dizziness, unilateral numbness/paresthesias, gait abnormalities, chest pain, palpitations, shortness of breath, or abdominal complaints. He wants to go home. He has been taking plavix 75mg in am and aspirin 81mg hs prior to hospitalization. He reports compliance with medications. Objective Vitals Vital Signs Date Time Temp Pulse Resp B/P (MAP) Pulse Ox O2 Delivery O2 Flow Rate FiO2 02/11/18 08:23 98.0 67 18 133/65 (87) 95 02/11/18 04:32 97.6 59 16 148/70 (96) 94 02/11/18 03:35 58 02/11/18 00:00 55 02/10/18 23:20 97.8 59 18 135/63 (87) 94 02/10/18 20:16 98.1 62 18 134/61 (85) 95 02/10/18 17:39 02/10/18 17:15 95 Room Air 02/10/18 16:22 97 21 02/10/18 14:46 67 146/69 (94) 02/10/18 14:35 71 18 170/79 (109) 97 Room Air 02/10/18 14:24 97.5 79 20 149/78 (101) 96 I/O 02/10/18 02/10/18 02/10/18 02/11/18 02/11/18 02/11/18 07:00 15:00 23:00 07:00 15:00 23:00 Intake Total 580 ml Balance 580 ml Intake Oral 480 ml IV Total 100 ml Result Diagram: 02/10/18 1450 02/11/18 0635 Imaging Last Impressions Head CT 02/10/18 1439 Signed Impressions: Service Date/Time: Saturday, February 10, 2018 14:56 - CONCLUSION: 1. No acute findings in the brain. 2. No diffuse ischemic change. Ean Mauricio MD Chest X-Ray 02/10/18 1439 Signed Impressions: Service Date/Time: Saturday, February 10, 2018 14:55 - CONCLUSION: Underinflation with atelectasis at the lung bases. Otherwise, no acute cardiopulmonary abnormality is identified. Chris Harris MD Lower Extremity Ultrasound 02/10/18 Signed Impressions: Service Date/Time: Saturday, February 10, 2018 19:40 - CONCLUSION: Normal examination. Layton Stokes MD Head Magnetic Resonance Angiography 02/10/18 Signed Impressions: Service Date/Time: Saturday, February 10, 2018 18:35 - CONCLUSION: Normal examination for a patient of this age. Layton Stokes MD Carotid Artery Ultrasound 02/10/18 Signed Impressions: Service Date/Time: Saturday, February 10, 2018 19:47 - CONCLUSION: 1. Mild plaque formation in the carotid bifurcations. No hemodynamically significant stenosis. Layton Stokes MD Brain MRI 02/10/18 Signed Impressions: Service Date/Time: Saturday, February 10, 2018 18:35 - CONCLUSION: 1. Acute 1.3 x 0.8 cm infarct in the left anabell. 2. Remote lacunar infarct right basal ganglia with some hemosiderin deposition. Layton Stokes MD Objective Remarks GENERAL: Well-nourished, well-developed pleasant elderly male patient in [facility]. SKIN: Warm and dry. No rash. HEENT: Normocephalic. Atraumatic.Pupils equal and round. Mucous membranes pink and moist. CARDIOVASCULAR: Regular rate and rhythm. No murmur appreciated. RESPIRATORY: No accessory muscle use. Clear to auscultation. Breath sounds equal bilaterally. GASTROINTESTINAL: Abdomen soft, non-tender, nondistended. Normoactive bowel sounds x4. MUSCULOSKELETAL: No obvious deformities. Extremities without clubbing, cyanosis , or edema. NEUROLOGICAL: Awake and alert. No obvious cranial nerve deficits. Motor grossly within normal limits. 5/5 muscle strength in bilateral upper and lower extremities. Normal speech. No facial droop/lid lag/tongue deviation. Symmetrical nasolabial folds. Bilateral upper and lower extremity sensation equal and intact. PSYCHIATRIC: Appropriate mood and affect; insight and judgment normal. Medications and IVs Current Medications Medications (Trade) Dose Ordered Sig/Lo Route Start Time Stop Time Status Last Admin (NS Flush) 2 ml BID IV FLUSH 02/10/18 21:00 (NS Flush) 2 ml UNSCH PRN IV FLUSH 02/10/18 16:15 Sodium Chloride 1,000 ml @ 70 mls/hr [id number] IV 02/10/18 17:00 (Vasotec Inj) 1.25 mg Q4H PRN IV PUSH 02/10/18 16:15 (Aspirin) 325 mg DAILY PO 02/11/18 09:00 (NovoLOG SUPPLEMENTAL SCALE) 1 ACHS SQ 02/10/18 17:00 (D50w (Vial) Inj) 50 ml UNSCH PRN IV PUSH 02/10/18 16:15 (Glucagon Inj) 1 mg UNSCH PRN OTHER 02/10/18 16:15 (Mag-Ox) 400 mg Q12HR PO 02/10/18 21:00 02/11/18 20:59 02/11/18 00:38 (Tylenol) 650 mg Q4H PRN PO 02/10/18 16:15 (Zofran Inj) 4 mg Q6H PRN IVP 02/10/18 16:15 (Tylenol) 650 mg Q6H PRN PO 02/10/18 16:15 (Narcan Inj) 0.4 mg UNSCH PRN IV PUSH 02/10/18 16:15 (Janie-Colace) 1 tab BID PO 02/10/18 21:00 (Milk Of Magnesia Liq) 30 ml Q12H PRN PO 02/10/18 16:15 (Senokot) 17.2 mg Q12H PRN PO 02/10/18 16:15 (Dulcolax Supp) 10 mg DAILY PRN RECTAL 02/10/18 16:15 (Lactulose Liq) 30 ml DAILY PRN PO 02/10/18 16:15 Sodium Chloride 1,000 ml @ 75 mls/hr [id number] IV 02/10/18 20:00 02/10/18 22:35 (Plavix) 75 mg DAILY PO 02/10/18 19:45 02/10/18 22:34 A/P Problem List: (1) CVA (cerebral vascular accident) ICD Code: I63.9 - Cerebral infarction, unspecified Status: Acute Assessment and Plan 72-year-old male who presented to the emergency room complaining of 4 day history of right-sided weakness, slurred speech and difficulty swallowing. On exam he has right-sided weakness. Acute CVA: patient presented with multiple neurological deficits including right sided weakness, slurred speech, dysphagia. -Head CT images reviewed, no acute findings -Brain MRI reviewed, shows acute 1.3 x 0.8cm infarct in the left anabell; remote lacunar infarct right basal ganglia -Head/Neck MRA reviewed, no acute findings -Increased aspirin to full dose and continue patient's Plavix and statin -Allowed permissive hypertension with IV hydration, HOB flat -Carotid ultrasound with mild plaque; no significant stenosis -Check echocardiogram, pending -Monitor on telemetry. -Risk factor modifications, obtain A1c and lipid profile. -Consult neurology, appreciate recommendations -PT, OT, ST, and stroke navigator consulted Right lower extremity pitting edema: with recent travel -Doppler U/S negative for DVT -Swelling improved, likely dependent edema. NILTON on CKD stage III: Cr 1.63, no previous labs to compare -given IVF hydration -Repeat BMP with Cr 1.36, improved -Continue outpatient follow up Diabetes mellitus, type 2: chronic -hold patient's metformin, Januvia, Glyburide for now -monitor Accu-checks and cover with SSI Hypertension/Hyperlipidemia: chronic -continue patient's home meds including statin, metoprolol 25mg bid, amlodipine 5mg daily, lisinopril 10mg daily -monitor BP, adjust antihypertensives as needed CAD s/p stent: chronic, no complaints of chest pain -continue patient's home meds including aspirin, plavix, BB, ROSALIE, statin -monitor on telemetry Hypomagnesemia: Mag 1.2. -Replaced with 2 g of IV magnesium and magnesium oxide bid x 1 day -repeat level with mag 1.7, will give additional 1G IV mag replacement DVT prophylaxis: with SCD only in the left lower extremity. Consider pharmacological prophylaxis pending neurology recommendations Discharge Planning Discharge pending echocardiogram, PT/OT eval, and neurology clearance. Problem Qualifiers (1) CVA (cerebral vascular accident): Qualified Codes: I63.9 - Cerebral infarction, unspecified Joslyn Simeon PA-C February 11, 2018 8:36 am
[2018-02-11] MEDS: SODIUM CHLORIDE 0.9% FLUSH 10 ML FLUSH IV FLUSH SCH ×2 (09:00→21:55)
[2018-02-11] MEDS: DOCUSATE SODIUM 50 MG/SENNA 8.6 MG TAB PO SCH ×2 (09:00→21:55)
[2018-02-11] MEDS ORDERED: GADODIAMIDE PF 287 MG/ML 20 ML VIAL (for RAD MRI) IVCONTRAST ONE (09:07)
--- NOTE | 2018-02-11 09:25 | RADRPT ---
EXAM DATE/TIME: 02/11/2018 08:41 [place] COMPARISON: MRA BRAIN W/O CONTRAST, February 10, 2018, 18:35. INDICATIONS : Stenosis. Right sided weakness. CONTRAST: 20 cc Omniscan (gadodiamide) IV MEDICAL HISTORY : Carcinoma, prostate. Hypertension. Diabetes mellitus type 2. SURGICAL HISTORY : Prostatectomy. Knee surgery ENCOUNTER: Subsequent ACUITY: 2 day PAIN SCORE: 0/10 LOCATION: cranial Percent stenosis is calculated using the diameter of the stenotic region over the diameter of the nor mal distal internal carotid artery. TECHNIQUE: Bolus infused MRA of the extracranial circulation was performed using a neurovascular coil. Post pro cessing was performed including rotating subvolume maximum intensity projections of each carotid az ry, rotating full volume maximum intensity projections of both carotid arteries, sagittal and coronal sliding thin slab reformations of each carotid artery, and left oblique sliding thin slab reformatio n through the aortic arch to include the origin of the arch branch vessels. FINDINGS: AORTIC ARCH: There is a 2 vessel origin of the great vessels from the aorta. No evidence of ostial narrowing. RIGHT CAROTID: The common carotid artery is intact. The carotid bulb has a normal configuration without ulceration or narrowing. The internal carotid artery lumen is smooth without stenosis. The external carotid ar braulio is intact. LEFT CAROTID: The common carotid artery is intact. The carotid bulb has a normal configuration without ulceration or narrowing. The internal carotid artery lumen is smooth without stenosis. The external carotid ar braulio is intact. VERTEBRALS: The vertebral arteries have a symmetric diameter. No stenotic lesions are seen. CONCLUSION: No stenotic lesions seen. Ean Mauricio MD on February 11, 2018 at 9:21 Board Certified Radiologist. This report was verified electronically.
[2018-02-11] MEDS ORDERED: MAGNESIUM SULFATE 1 GM PREMIX 100 ML IV ONE (09:45)
[2018-02-11] MEDS: ASPIRIN 325 MG TAB PO SCH (09:48)
[2018-02-11] MEDS: CLOPIDOGREL 75 MG TAB PO SCH (09:50)
[2018-02-11] MEDS: amLODIPine BESYLATE 5 MG TAB PO SCH (14:27)
[2018-02-11] MEDS: LISINOPRIL 10 MG TAB PO SCH (14:28)
--- NOTE | 2018-02-11 16:37 | ECHRPT ---
Indication: CVA/TIA CONCLUSIONS Normal left ventricular size. Wall thickness is measured at the upper limits of normal. The left ventricular systolic function is hyperdynamic with an estimated ejection fraction in the ra nge of 65- 70%. No definite wall motion abnormalities. The aortic valve is not well visualized. There is trace tricuspid valve regurgitation. Trace mitral valve regurgitation. BP: 133 / 65 HR: 67 Rhythm: Sinus MEASUREMENTS (Male / Female) Normal Values Technical Quality:Fair 2D ECHO LV Diastolic Diameter PLAX 4.0 cm 4.2 - 5.9 / 3.9 - 5.3 cm LV Systolic Diameter PLAX 2.8 cm IVS Diastolic Thickness 1.2 cm 0.6 - 1.0 / 0.6 - 0.9 cm LVPW Diastolic Thickness 1.2 cm 0.6 - 1.0 / 0.6 - 0.9 cm LV Relative Wall Thickness 0.6 RV Internal Dim ED PLAX 2.8 cm LVOT Diameter 1.9 cm Aortic Root Diameter 3.1 cm LA Systolic Diameter LX 4.1 cm 3.0 - 4.0 / 2.7 - 3.8 cm M-MODE AV Cusp Separation MM 1.4 cm DOPPLER AV Peak Velocity 113.0 cm/s AV Peak Gradient 5.1 mmHg AV Mean Gradient 3.0 mmHg AV Velocity Time Integral 26.2 cm LVOT Peak Velocity 60.2 cm/s LVOT Peak Gradient 1.4 mmHg LVOT Velocity Time Integral 13.2 cm AV Area Cont Eq vti 1.4 cm AV Area Cont Eq pk 1.5 cm Mitral E Point Velocity 85.9 cm/s Mitral A Point Velocity 95.8 cm/s Mitral E to A Ratio 0.9 LV E' Lateral Velocity 6.9 cm/s Mitral E to LV E' Lateral Ratio 12.4 LV E' Septal Velocity 7.2 cm/s Mitral E to LV E' Septal Ratio 11.9 TR Peak Velocity 178.0 cm/s TR Peak Gradient 12.7 mmHg Right Atrial Pressure 10.0 mmHg Pulmonary Artery Systolic Pressu 22.7 mmHg Right Ventricular Systolic Press 22.7 mmHg PV Peak Velocity 88.7 cm/s PV Peak Gradient 3.1 mmHg FINDINGS LEFT VENTRICLE Normal left ventricular size. Wall thickness is measured at the upper limits of normal. The left ventricular systolic function is hyperdynamic with an estimated ejection fraction in the ra nge of 65- 70%. No definite wall motion abnormalities. RIGHT VENTRICLE Normal right ventricular size and systolic function. LEFT ATRIUM The left atrial size is upper limits of normal. RIGHT ATRIUM The right atrium is not well visualized. ATRIAL SEPTUM No atrial level shunt is demonstrated by color flow Doppler interrogation. AORTA The aortic root and proximal ascending aorta are not well visualized. MITRAL VALVE Trace mitral valve regurgitation. AORTIC VALVE The aortic valve is not well visualized. TRICUSPID VALVE There is trace tricuspid valve regurgitation. PULMONARY VALVE No pulmonary valve regurgitation or stenosis. VESSELS The inferior vena cava is normal in size. Charli Denney MD (Electronically Signed) Final Date:11 Feb 2018 16:36
[2018-02-11 16:51] LABS: HEMOGLOBIN A1C 7.3 % (4.3-6.0)
[2018-02-11] MEDS ORDERED: ATORVASTATIN 80 MG TAB PO SCH (21:00)
[2018-02-11] MEDS: METOPROLOL TARTRATE 25 MG TAB PO SCH (21:54)
[2018-02-12 02:00] VITALS: PULSE 55
[2018-02-12 05:27] LABS: BICARBONATE 27.9 MEQ/L (21.0-32.0); CALCIUM 8.4 MG/DL (8.5-10.1); CREATININE 1.22 MG/DL (0.60-1.30); MAGNESIUM 1.7 MG/DL (1.5-2.5)
--- NOTE | 2018-02-12 07:06 | HHI.PR ---
Subjective Remarks sr Objective Vital Signs Date Time Temp Pulse Resp B/P (MAP) Pulse Ox O2 Delivery O2 Flow Rate FiO2 02/12/18 05:09 21 02/12/18 02:00 55 02/11/18 21:39 98.0 91 18 187/82 (117) 93 02/11/18 16:03 98.1 82 18 138/72 (94) 95 02/11/18 12:33 98.0 63 18 183/78 (113) 95 02/11/18 08:23 98.0 67 18 133/65 (87) 95 02/11/18 08:00 67 02/11/18 08:00 67 02/11/18 07:44 97 21 I/O 02/11/18 02/11/18 02/11/18 02/12/18 02/12/18 02/12/18 07:00 15:00 23:00 07:00 15:00 23:00 Intake Total 580 ml Balance 580 ml Intake Oral 480 ml IV Total 100 ml # Voids 4 Result Diagram: 02/10/18 1450 02/12/18 0457 Objective Remarks face sym now 02/15 r side Assessment and Plan Assessment and Plan imp imoproved fu echo nl holter pend nl ldl labs mra neck left vert dom asa plavix already on likely lacunar cva could dc when holter finished on asa plavix fishoil and statin will do cn o/p Beny Lujan MD February 12, 2018 07:06
[2018-02-12 07:33] VITALS: BP 165/73; PULSE 60; RESP 18; TEMP 98.8; O2SAT 93
[2018-02-12] MEDS ORDERED: ASA325 PO (07:36)
[2018-02-12] MEDS ORDERED: FISHCAP4 PO (07:36)
--- NOTE | 2018-02-12 07:38 | HHI.DCPOC ---
Discharge Care Plan Diagnosis: (1) CVA (cerebral vascular accident) Goals to Promote Your Health * To prevent worsening of your condition and complications * To maintain your health at the optimal level Directions to Meet Your Goals Take your medications as prescribed Follow your dietary instruction Follow activity as directed Keep your appointments as scheduled Take your immunizations and boosters as scheduled If your symptoms worsen call your PCP, if no PCP go to Urgent Care Center or Emergency Room Smoking is Dangerous to Your Health. Avoid second hand smoke Call the 24-hour hour crisis hotline for domestic abuse at Joslyn Simeon PA-C February 12, 2018 7:38 am
[2018-02-12 08:00] VITALS: PULSE 67
[2018-02-12] MEDS ORDERED: FENOFIBRATE 145 MG TAB PO SCH (09:00)
--- NOTE | 2018-02-12 09:13 | HHI.DS ---
cc: Beny Lujan MD Discharge Summary Admission Date February 10, 2018 at 14:16 pm Discharge Date: February 12, 2018 Admitting Diagnosis CVA on 02/06, right sided weakness and aphasia (1) CVA (cerebral vascular accident) ICD Code: I63.9 - Cerebral infarction, unspecified Status: Acute Procedures None. Brief History - From Admission This is a 72-year-old male who presented to the emergency room complaining of 4 day history of right-sided weakness. States he woke up with slurred speech having difficulty ambulating and writing with his right hand. He did not seek medical attention because he was on a cruise. Denies fever, chills, headache, dizziness, chest pain and shortness of breath. Reports of choking with liquids. He also fell twice and hurt his left elbow. Persistence of symptoms prompted ER visit. All other systems reviewed negative CBC/BMP: 02/10/18 1450 02/12/18 0457 Significant Findings Laboratory Tests Test 02/10/18 14:50 02/11/18 06:35 02/12/18 04:57 Red Blood Count 4.36 MIL/MM3 (4.50-5.90) Hematocrit 38.2 % (39.0-51.0) Neutrophils (%) (Auto) 70.4 % (16.0-70.0) Eosinophils (%) (Auto) 6.5 % (0.0-4.0) Eosinophils # (Auto) 0.7 TH/MM3 (0-0.4) Blood Urea Nitrogen 26 MG/DL (7-18) 21 MG/DL (7-18) 19 MG/DL (7-18) Creatinine 1.63 MG/DL (0.60-1.30) 1.36 MG/DL (0.60-1.30) Magnesium Level 1.2 MG/DL (1.5-2.5) Estimat Glomerular Filtration Rate 42 ML/MIN (>89) 52 ML/MIN (>89) 59 ML/MIN (>89) Hemoglobin A1c 7.3 % (4.3-6.0) Troponin I LESS THAN 0.02 NG/ML Random Glucose 116 MG/DL (74-106) 161 MG/DL (74-106) Calcium Level 8.1 MG/DL (8.5-10.1) 8.4 MG/DL (8.5-10.1) Chloride Level 108 MEQ/L (98-107) 108 MEQ/L (98-107) HDL Cholesterol 39.4 MG/DL (40.0-60.0) Imaging Last Impressions Neck Magnetic Resonance Angiography 02/11/18 Signed Impressions: Service Date/Time: Sunday, February 11, 2018 08:41 - CONCLUSION: No stenotic lesions seen. Ean Mauricio MD Head CT 02/10/[id number] Signed Impressions: Service Date/Time: Saturday, February 10, 2018 14:56 - CONCLUSION: 1. No acute findings in the brain. 2. No diffuse ischemic change. Ean Mauricio MD Chest X-Ray 02/10/[id number] Signed Impressions: Service Date/Time: Saturday, February 10, 2018 14:55 - CONCLUSION: Underinflation with atelectasis at the lung bases. Otherwise, no acute cardiopulmonary abnormality is identified. Chris Harris MD Lower Extremity Ultrasound 02/10/18 Signed Impressions: Service Date/Time: Saturday, February 10, 2018 19:40 - CONCLUSION: Normal examination. Layton Stokes MD Head Magnetic Resonance Angiography 02/10/18 Signed Impressions: Service Date/Time: Saturday, February 10, 2018 18:35 - CONCLUSION: Normal examination for a patient of this age. Layton Stokes MD Carotid Artery Ultrasound 02/10/18 Signed Impressions: Service Date/Time: Saturday, February 10, 2018 19:47 - CONCLUSION: 1. Mild plaque formation in the carotid bifurcations. No hemodynamically significant stenosis. Layton Stokes MD Brain MRI 02/10/18 Signed Impressions: Service Date/Time: Saturday, February 10, 2018 18:35 - CONCLUSION: 1. Acute 1.3 x 0.8 cm infarct in the left anabell. 2. Remote lacunar infarct right basal ganglia with some hemosiderin deposition. Layton Stokes MD PE at Discharge GENERAL: Well-nourished, well-developed pleasant elderly male patient in [facility]. SKIN: Warm and dry. No rash. HEENT: Normocephalic. Atraumatic.Pupils equal and round. Mucous membranes pink and moist. CARDIOVASCULAR: Regular rate and rhythm. No murmur appreciated. RESPIRATORY: No accessory muscle use. Clear to auscultation. Breath sounds equal bilaterally. GASTROINTESTINAL: Abdomen soft, non-tender, nondistended. Normoactive bowel sounds x4. MUSCULOSKELETAL: No obvious deformities. Extremities without clubbing, cyanosis , or edema. NEUROLOGICAL: Awake and alert. No obvious cranial nerve deficits. Motor grossly within normal limits. 5/5 muscle strength in bilateral upper and lower extremities. Normal speech. No facial droop/lid lag/tongue deviation. Symmetrical nasolabial folds. Bilateral upper and lower extremity sensation equal and intact. Pt update on day of discharge Follow-up for CVA. The patient reports feeling better today. He states he does find that he slurs his words occasionally. He also reports that he had some difficulty stepping up with his right leg. He has been ambulating to the bathroom without any problems. He states his right arm weakness has pretty much resolved. He denies any new medical complaints including no headache, visual changes, chest pain, palpitations, or shortness of breath. He wants to go home. Hospital Course 72-year-old male who presented to the emergency room complaining of 4 day history of right-sided weakness, slurred speech and difficulty swallowing. On exam he has right-sided weakness. Acute CVA: patient presented with multiple neurological deficits including right sided weakness, slurred speech, dysphagia. Head CT images reviewed, no acute findings; however Brain MRI showed acute 1.3 x 0.8cm infarct in the left anabell; remote lacunar infarct right basal ganglia. Head/Neck MRA reviewed, no acute findings. Carotid ultrasound with mild plaque; no significant stenosis. Echocardiogram wnl with EF 65-70%. Increased aspirin to full dose and continue patient's Plavix and statin. Initially allowed permissive hypertension, given IV hydration, HOB flat. Restarted BP meds slowly. Monitor on telemetry, no arrhythmias. Holter completed with results pending at discharge. Risk factor modifications, HgbA1c 7.3 and lipid profile with elevated LDL 95. Continue oral diabetes medications and statin. Consult neurology, appreciate recommendations, cleared for discharge with recommendations to continue plavix, fish oils, statin , and take aspirin 325mg daily [id number], then return to taking aspirin 81mg daily. PT, OT, ST, and stroke navigator consulted. PT cleared patient for discharge with outpatient physical therapy. Patient symptoms improved with 5/5 RUE/RLE strength at discharge. Dr. Lujan also recommended outpatient event monitor. 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 Right lower extremity pitting edema: with recent travel. Doppler U/S negative for DVT. Swelling improved, likely dependent edema. NILTON on CKD stage III: Cr 1.63, no previous labs to compare. Given IVF hydration. Repeat BMP with Cr 1.22, much improved. Continue outpatient follow up Diabetes mellitus, type 2: chronic. Held patient's metformin, Januvia, Glyburide for now. Monitor Accu-checks and cover with SSI. Restart home meds upon discharge. Hypertension/Hyperlipidemia: chronic. Continue patient's home meds including statin, metoprolol 25mg bid, amlodipine 5mg daily, lisinopril 10mg daily. CAD s/p stent: chronic, no complaints of chest pain. Continue patient's home meds including aspirin, plavix, BB, ROSALIE, statin. Monitored on telemetry. Hypomagnesemia: Mag 1.2. Replaced with 2 g of IV magnesium and magnesium oxide bid x 1 day. Repeat level with mag 1.7, will give additional 1G IV mag replacement. Pt Condition on Discharge: Stable Discharge Disposition: Discharge Home Discharge Time: > 30 minutes Discharge Instructions DIET: Follow Instructions for: Heart Healthy Diet, Diabetic Diet Activities you can perform: Regular-No Restrictions Follow up Referrals: Cardiology Neurology - 1 Week with Beny Lujan MD PCP Follow-up - 1 Week with Mirian Velásquez MD New Orders: EVENT MONITOR Physical Therapy - 2-3 Days New Medications: Fish Oil-Cholecalciferol (Fish Oil + D3) 1,200-1,000 Mg-Unit Cap 1 CAP PO DAILY for Nutritional Supplement, #30 CAP 0 Refills Aspirin (Px Aspirin) 325 Mg Tab 325 MG PO DAILY for Stroke Prevention, #30 TAB Take full strength aspirin 325mg for 1 month, then return to taking aspirin 81mg daily. Continued Medications: Amlodipine (Amlodipine) 5 Mg Tab 5 MG PO DAILY for Blood Pressure Management, #30 TAB 0 Refills Atorvastatin (Atorvastatin) 80 Mg Tab 80 MG PO HS for Cholesterol Management, #30 TAB 0 Refills Clopidogrel (Clopidogrel) 75 Mg Tab 75 MG PO DAILY for Blood Clot Prevention, #30 TAB 0 Refills Fenofibrate (Fenofibrate) 50 Mg Cap 200 MG PO DAILY, #30 CAP 0 Refills Glyburide (Glyburide) 2.5 Mg Tab 2.5 MG PO BID for Blood Sugar Management, #60 TAB 0 Refills Take with meals at the same time each day Glyburide (Glyburide) 5 Mg Tab 10 MG PO AC BREAKFAST for Blood Sugar Management, #120 TAB 0 Refills Take with meals at the same time each day Lisinopril (Lisinopril) 10 Mg Tab 10 MG PO DAILY, #30 TAB 0 Refills Metformin (Metformin) 1,000 Mg Tab 1000 MG PO AC BREAKFAST for Blood Sugar Management, #60 TAB 0 Refills Metformin (Metformin) 500 Mg Tab 500 MG PO DAILY@1600 for Blood Sugar Management, #30 TAB 0 Refills With a meal Metformin (Metformin) 500 Mg Tab 500 MG PO HS for Blood Sugar Management, #30 TAB 0 Refills With a meal Metoprolol Tartrate (Metoprolol Tartrate) 25 Mg Tab 25 MG PO BID, #60 TAB 0 Refills Sitagliptin (Januvia) 100 Mg Tab 100 MG PO DAILY for Blood Sugar Management, #30 TAB 0 Refills Joslyn Simeon PA-C February 12, 2018 9:13 am
[2018-02-12] MEDS: ASPIRIN 325 MG TAB PO SCH (09:24)
[2018-02-12] MEDS: DOCUSATE SODIUM 50 MG/SENNA 8.6 MG TAB PO SCH (09:24)
[2018-02-12] MEDS: amLODIPine BESYLATE 5 MG TAB PO SCH (09:24)
[2018-02-12] MEDS: LISINOPRIL 10 MG TAB PO SCH (09:24)
[2018-02-12] MEDS: SODIUM CHLORIDE 0.9% FLUSH 10 ML FLUSH IV FLUSH SCH (09:24)
[2018-02-12] MEDS: METOPROLOL TARTRATE 25 MG TAB PO SCH (09:24)
[2018-02-12] MEDS: CLOPIDOGREL 75 MG TAB PO SCH (09:24)
[2018-02-12] MEDS: INSULIN ASPART SUPPLEMENTAL SCALE SQ SCH ×2 (09:25→12:00)
[2018-02-12 11:15] VITALS: PULSE 67
[2018-02-12] MEDS: SODIUM CHLOR 0.9% 1000 ML INJ 1,000 ML IV SCH ×2 (11:54→12:00)
--- NOTE | 2018-02-13 16:03 | HM ---
Date Performed: 02/11/2018 Time Performed: 09:42:00 HOOKUP DATE: 02/11/18 09:42:00 AM Tue ANALYSIS START TIME: 02/11/2018 9:47:00 AM ANALYSIS END TIME: 02/12/2018 9:50:59 AM PATIENT AGE: 72 PATIENT HEIGHT PATIENT WEIGHT DRUG LIST PATIENT DIAGNOSIS: cva TEST NARRATIVE: The patient's average heart rate was 70 BPM. Heart rates greater than 120 B PM were noted < 1% of the time. Heart rates less than 50 BPM were noted < 1% of the time. No jannet ses exceeding 2.0 seconds were noted. 1 ventricular ectopics, which represented < 1% of the total beat count, were noted. The highest ventricular ectopic frequency occurred from 06:00 PM to 07:00 P M Tue. During this time 1 VE(s) occurred. Ventricular ectopics were observed as 1 isolated beat(s) only. No couplets or runs were noted. 227 supraventricular ectopics, which represented < 1% of t he total beat count, were noted. The highest supraventricular ectopic frequency occurred from 04:00 AM to 05:00 AM Wed. During this time 32 SVE(s) occurred. No episodes of ST depression (defined a s -1.0 mm or more) were noted in channel 1. No episodes of ST depression (defined as -1.0 mm or more ) were noted in channel 2. No episodes of ST depression (defined as -1.0 mm or more) were noted in c hannel 3. TEST INTERPRETATION: Patient undergoes a holter monitor to see if there is any relationship of h is neurologic symptoms with an underlying rhythm disturbance. No diary entries are made. Only the exp anded tracings are subject to interpretation. Patient is in normal Sinus rhythm throughout the monitoring system. He does have occassional premature atrial contractions. There is o ccassional sinus bradycardia down to a minimum of 50 beats per minute. No significant bradyarrhythmia s are noted. He does have some brief episodes of nonsustained supraventricular tachycardia, but there are associated with organized atrial activity, and I see no evidence of atrial fibrillation or atria l flutter. Extremely rare PVCs are noted. Episodes of a modest sinus tachycadia are noted. No signifi cant pauses are noted. Conclusions: 1) Holter monitor showing predominantly sinus rhythm with occassi onal PVCS 2) Brief episodes of nonsustained supraventricular tachycardia with organized atrial activi ty, but no atrial fibrillation or atrial flutter noted. 3) Essentially, no ventricular ectopy or dysr hythmia noted 4) No other significant tachyarrhythmias or bradyarrhythmias noted. 5) No symptoms rep orted in the diary, so it is presumed that the patient is asymptomatic Signed by : Lucy Magana
== END 2018-02-12 13:01 | disposition home or self-care (01) | DRG 65 ==
LOC: NEPE 14:16 → NEDA 16:14 → NEPGCP 17:42 → OBSVTOIN 02-11 08:02
PROVIDERS: ADMIT Hospitalist; ATTEND Hospitalist
DX: I63.9 Cerebral infarction, unspecified (principal); N17.9 Acute kidney failure, unspecified; E11.22 Type 2 diabetes mellitus with diabetic chronic kidney disease; R13.10 Dysphagia, unspecified; E83.42 Hypomagnesemia; G81.91 Hemiplegia, unspecified affecting right dominant side; R47.01 Aphasia; N18.3 Chronic kidney disease, stage 3 (moderate); I12.9 Hypertensive chronic kidney disease with stage 1 through stage 4 chronic kidney disease, or unspecified chronic kidney disease; I25.10 Atherosclerotic heart disease of native coronary artery without angina pectoris; R60.9 Edema, unspecified; R47.81 Slurred speech; R26.2 Difficulty in walking, not elsewhere classified; E78.5 Hyperlipidemia, unspecified; E78.00 Pure hypercholesterolemia, unspecified; Z85.46 Personal history of malignant neoplasm of prostate; Z79.82 Long term (current) use of aspirin; Z79.02 Long term (current) use of antithrombotics/antiplatelets; Z95.5 Presence of coronary angioplasty implant and graft; Z79.84 Long term (current) use of oral hypoglycemic drugs
CPT/HCPCS: 70450; 70544; 70548; 70551; 71045; 80048; 80053; 80061; 82550; 82552; 82607; 82746; 82948; 83036; 83735; 84425; 84439; 84443; 84484; 85025; 85610; 85652; 85730; 86038; 86592; 93005; 93225; 93226; 93306; 93880; 93971; A9579; G8987-GP; G8988-GP; G8996-GN; G8997-GN; J1815; J3475; J7030